=== PATIENT | female | born 1980 | race American Indian/Alaskan Native ===

== ENCOUNTER 2016-10-18 22:45 | Emergency (ER) | payer SELFPAY ==
[2016-10-18] MEDS ORDERED: BOOSTRIX IM ONE (23:27)
[2016-10-18] MEDS ORDERED: FIORICET PO ONE (23:28)
[2016-10-18] MEDS ORDERED: ATIVAN IV ONE (23:28)
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
[2016-10-19 00:17] LABS: Basophils % (Auto) 0.7 % (0.0-1.8); Hematocrit 42.3 % (30.3-42.9); Hemoglobin 13.4 gm/dl (10.1-14.3); Mean Corpuscular HGB Conc 32 % (30-34); Mean Corpuscular Hemoglobin 28 pg (28-32); Mean Corpuscular Volume 89 fl (79-97); Platelet Count 261 K/mm3 (140-440); Red Blood Count 4.73 M/mm3 (3.65-5.03); Red Cell Distribution Width 13.9 % (13.2-15.2); White Blood Count 7.1 K/mm3 (4.5-11.0)
[2016-10-19 00:37] LABS: Anion Gap 17 mmol/L; Blood Urea Nitrogen 16 mg/dL (7-17); Calcium 8.9 mg/dL (8.4-10.2); Carbon Dioxide 20 mmol/L (22-30); Glucose 97 mg/dL (65-100); Sodium 140 mmol/L (137-145)
[2016-10-19] MEDS ORDERED: CEREBYX 1,000 MG.PE in NACL 0.9% 100 ML IV ONE (01:00)
[2016-10-19 02:29] VITALS: BP 113/83
[2016-10-19] MEDS ORDERED: BENADRYL IV ONE (02:34)
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
== END 2016-10-19 06:14 | disposition home or self-care (01) ==
LOC: ED 22:45
DX: R56.9 Unspecified convulsions (principal); R79.1 Abnormal coagulation profile
CPT/HCPCS: 36415; 70450; 80048; 80185; 84703; 85025; 90471; 90715; 96365; 96375; 99284; J1200; J2060; Q2009